=== PATIENT | female | born 1980 | race Caucasian/White ===

== ENCOUNTER → 2024-02-20 13:08 | Outpatient (REF) | payer OTHER, SELFPAY | LOC: WDC 13:08 | PROVIDERS: ATTENDING PHYSICIAN Nurse Practitioner Family | DX: Z12.31 Encounter for screening mammogram for malignant neoplasm of breast (principal) | CPT/HCPCS: 77063; 77067 ==

== ENCOUNTER → 2025-02-25 16:24 | Outpatient (REF) | payer OTHER, SELFPAY | LOC: WDC 16:24 | PROVIDERS: ATTENDING PHYSICIAN Nurse Practitioner Family | DX: Z12.31 Encounter for screening mammogram for malignant neoplasm of breast (principal) | CPT/HCPCS: 77063; 77067 ==

== ENCOUNTER → 2025-05-15 10:56 | Outpatient (REF) | payer OTHER, SELFPAY | LOC: WDC 10:56 | PROVIDERS: ATTENDING PHYSICIAN Nurse Practitioner Family | DX: R92.2 Inconclusive mammogram (principal) | CPT/HCPCS: 76641 ==